=== PATIENT | male | born 1960 | race Caucasian/White ===

== ENCOUNTER 2022-04-24 14:00 | Emergency (ER) | payer OTHER ==
[2022-04-24] MEDS ORDERED: SODIUM CHLORIDE 0.9% 1,000 ML IV ONE (14:03)
[2022-04-24] MEDS ORDERED: methylPREDNISolone SOD SUCCI 125 MG/2 ML VIAL IV STA (14:03)
[2022-04-24] MEDS ORDERED: IPRATROPIUM-ALBUTEROL 3 ML NEB INHALATION STA (14:04)
[2022-04-24 14:09] VITALS: TEMP 97.9
--- NOTE | 2022-04-24 14:10 | ED ---
General Adult HPI - General Stated complaint: bee sting, allergic reaction Time Seen by Provider: 04/24/22 14:00 Source: patient, RN notes reviewed, old records reviewed - History of Present Illness Initial comments: This is a 61-year-old male who presents emergency department after having been bitten on the right side of his posterior neck by some sort of insect. Patient states about 20 minutes after that he became nauseous and vomited had an episode of diarrhea and became a little lightheaded. Patient denies any chest pain palpitations difficulty breathing or shortness of breath. Patient states prior to this episode he felt fine. Patient denies ever having a reaction to be like this. Patient states he was stung about a month ago and his arm swelled up but he had no other systemic problems. Patient denies headache patient denies any numbness or weakness. Patient currently is complaining of just feeling cold. Patient states his does have COVID. - Related Data Previous Rx's Medication Instructions Recorded EPINEPHrine (Auto Inject) [Epipen] 0.3 mg IM ONCE PRN #2 each 04/24/22 predniSONE [Deltasone] 40 mg PO DAILY #8 tab 04/24/22 Allergies Allergy/AdvReac Type Severity Reaction Status Date / Time No Known Allergies Allergy Verified 04/24/22 14:09 Review of Systems ROS Statement: Those systems with pertinent positive or pertinent negative responses have been documented in the HPI. ROS Other: All systems not noted in ROS Statement are negative. General Exam - General Exam Comments Initial Comments: GENERAL: Patient is well-developed and well-nourished. Patient is nontoxic and well- hydrated and is in mild distress. ENT: Neck is soft and supple. No significant lymphadenopathy is noted. Oropharynx is clear. Moist mucous membranes. Neck has full range of motion without eliciting any pain. EYES: The sclera were anicteric and conjunctiva were pink and moist. Extraocular movements were intact and pupils were equal round and reactive to light. Eyelids were unremarkable. PULMONARY: Unlabored respirations. Good breath sounds bilaterally. No audible rales rhonchi or wheezing was noted. CARDIOVASCULAR: There is a regular rate and rhythm without any murmurs gallops or rubs. ABDOMEN: Soft and nontender with normal bowel sounds. SKIN: Skin is clear with no lesions or rashes and otherwise unremarkable. NEUROLOGIC: Patient is alert and oriented x3. Cranial nerves II through XII are grossly intact. Motor and sensory are also intact. Normal speech, volume and content. Symmetrical smile. MUSCULOSKELETAL: Normal extremities with adequate strength and full range of motion. LYMPHATICS: No significant lymphadenopathy is noted PSYCHIATRIC: Normal psychiatric evaluation. Course Vital Signs 04/24/22 04/24/22 04/24/22 14:02 14:30 14:42 Temperature 97.9 F Pulse Rate 67 71 Respiratory 18 18 16 Rate Blood Pressure 88/53 102/60 O2 Sat by Pulse 90 L 98 Oximetry 04/24/22 04/24/22 04/24/22 14:49 15:08 15:54 Temperature Pulse Rate 71 Respiratory 16 Rate Blood Pressure 99/52 112/66 O2 Sat by Pulse Oximetry Medical Decision Making - Medical Decision Making Chest x-ray shows no acute abnormality. I will back and reevaluated the patient multiple times and he was feeling better and back to his baseline prior to discharge. Patient's vitals were stable the patient will be sent home with prednisone and an EpiPen. - Lab Data Lab Results 04/24/22 Range/Units 14:14 Coronavirus (PCR) Not Detected (Not Detectd) Disposition Clinical Impression: Anaphylaxis Disposition: HOME SELF-CARE Condition: Good Additional Instructions: Patient is to take Benadryl when necessary. Prescriptions: predniSONE [Deltasone] 40 mg PO DAILY #8 tab EPINEPHrine (Auto Inject) [Epipen] 0.3 mg IM ONCE PRN #2 each PRN Reason: Difficulty breathing Is patient prescribed a controlled substance at d/c from ED?: No Referrals: Jesse Bergeron Jr, DO [Primary Care Provider] - 1-2 days Time of Disposition: 15:58
--- NOTE | 2022-04-24 14:46 | XR ---
EXAMINATION TYPE: XR chest 2V DATE OF EXAM: 04/24/2022 COMPARISON: NONE TECHNIQUE: PA and lateral views submitted. HISTORY: Shortness of breath FINDINGS: The lungs are clear and there is no pneumothorax, pleural effusion, or focal pneumonia. Hypertrophi c arthropathy of the AC joint. No overt failure. Heart size normal. Hyperinflation seen. Atrophic and degenerative change of the spine. IMPRESSION: 1. Correlate for COPD..
[2022-04-24 15:54] VITALS: BP 112/66
[2022-04-24 16:20] VITALS: PULSE 72; RESP 18
== END 2022-04-24 16:20 | disposition home or self-care (01) ==
LOC: EC 14:00 → SUPCPDRO 14:00 → EC 16:20
DX: T78.2XXA Anaphylactic shock, unspecified, initial encounter (principal); Z20.822 Contact with and (suspected) exposure to COVID-19
CPT/HCPCS: 96361 ×2; 99284 ×2; 96374 ×2; 96375; 94640; 87635; 71046; J2930; 96360

== ENCOUNTER → 2023-05-07 | Outpatient (CLI) | payer BC, OTHER ==
--- NOTE | 2023-05-07 12:53 | XR ---
EXAMINATION TYPE: XR chest 2V DATE OF EXAM: 05/07/2023 COMPARISON: 04/24/2022 TECHNIQUE: PA and lateral views submitted. HISTORY: Cough FINDINGS: The lungs are clear and there is no pneumothorax, pleural effusion, or focal pneumonia. Heart size normal and no overt failure. Osseous structures demonstrate hypertrophic and degenerative changes of the spine. Hyperinflation suggests COPD. IMPRESSION: 1. No acute process.
== END | disposition home or self-care (01) ==
LOC: RADXRMAIN 12:26
PROVIDERS: ATTEND Internal Medicine
DX: R05.9 Cough, unspecified (principal)
CPT/HCPCS: 71046

== ENCOUNTER 2024-01-30 17:56 | Emergency (ER) | payer MEDICARE, OTHER ==
[2024-01-30] MEDS: FAMOTIDINE 20 MG/2 ML VIAL IV STA (18:16)
[2024-01-30] MEDS: diphenhydrAMINE 50 MG/ML 1 ML VIAL IVP STA (18:17)
[2024-01-30] MEDS: methylPREDNISolone SOD SUCCI 125 MG/2 ML VIAL IV STA (18:17)
[2024-01-30] MEDS: SODIUM CHLORIDE 0.9% 1,000 ML IV ONE (18:18)
--- NOTE | 2024-01-30 18:23 | ED ---
General Adult HPI - General Chief complaint: Allergic Reaction Stated complaint: Allergic reaction Time Seen by Provider: 01/30/24 17:59 Source: patient, EMS, RN notes reviewed, old records reviewed Mode of arrival: EMS - History of Present Illness Initial comments: 63-year-old male presenting with suspected anaphylaxis, has history of anaphylaxis to bee stings. He was painting outside and was stung by bee in the left upper arm. Patient developed nausea vomiting and diarrhea he subsequently became diaphoretic and minimally responsive. His had administered oral Benadryl and subsequently administered to autoinjector epinephrine doses however these were both . Upon arrival paramedics found the patient minimally responsive diaphoretic. They did additional dose of intramuscular epinephrine as well as IV fluid and Zofran and transported the patient. He had significant improvement during transport and is awake and alert at the time of arrival. - Related Data Previous Rx's Medication Instructions Recorded EPINEPHrine (Auto Inject) [Epipen] 0.3 mg IM ONCE PRN #2 each 04/24/22 predniSONE [Deltasone] 40 mg PO DAILY #8 tab 04/24/22 EPINEPHrine (Auto Inject) [Epipen] 0.3 mg IM ONCE PRN #2 each 01/30/24 Famotidine [Pepcid] 20 mg PO DAILY #7 tablet 01/30/24 diphenhydrAMINE [Benadryl] 25 mg PO TID PRN #21 capsule 01/30/24 predniSONE 50 mg PO DAILY #5 tab 01/30/24 Allergies Allergy/AdvReac Type Severity Reaction Status Date / Time venom-honey bee Allergy Anaphylaxis Verified 01/30/24 18:04 Review of Systems ROS Statement: Those systems with pertinent positive or pertinent negative responses have been documented in the HPI. ROS Other: All systems not noted in ROS Statement are negative. Past Medical History Past Medical History: No Reported History History of Any Multi-Drug Resistant Organisms: None Reported Smoking Status: Current every day smoker Past Alcohol Use History: Occasional Past Drug Use History: None Reported General Exam General appearance: alert, in distress Head exam: Present: atraumatic, normocephalic Eye exam: Present: normal appearance, PERRL ENT exam: Present: mucous membranes dry Neck exam: Present: normal inspection. Absent: tenderness Respiratory exam: Absent: respiratory distress, wheezes Cardiovascular Exam: Present: regular rate, normal rhythm GI/Abdominal exam: Present: soft. Absent: distended, tenderness, guarding Extremities exam: Present: normal inspection, normal capillary refill Neurological exam: Present: alert, oriented X3, CN II-XII intact. Absent: motor sensory deficit Psychiatric exam: Present: anxious Skin exam: Present: warm, dry Course Vital Signs 01/30/24 01/30/24 01/30/24 17:59 18:03 18:07 Temperature 97.1 F L Pulse Rate 77 78 Respiratory 18 18 18 Rate Blood Pressure 119/52 110/52 O2 Sat by Pulse 94 L 97 Oximetry 01/30/24 01/30/24 19:01 19:24 Temperature Pulse Rate 85 81 Respiratory 16 16 Rate Blood Pressure 119/52 108/81 O2 Sat by Pulse 97 97 Oximetry Medical Decision Making - Medical Decision Making Was pt. sent in by a medical professional or institution (TONY Sorenson, MEDIA MARKETING SPECIALIST, urgent care, hospital, or usp...) When possible be specific @ -No Did you speak to anyone other than the patient for history (EMS, parent, family, police, friend...)? What history was obtained from this source @ -No Did you review nursing and triage notes (agree or disagree)? Why? @ -I reviewed and agree with nursing and triage notes Were old charts reviewed (outside hosp., previous admission, EMS record, old EKG, old radiological studies, urgent care reports/EKG's, usp records)? Report findings @ -No old charts were reviewed Differential Diagnosis: Anaphylaxis secondary to bee sting EKG interpreted by me (3pts min.). @Sinus rhythm rate of 75, MN interval 212, QRS duration 113, QTc [address] segment elevation. X-rays interpreted by me (1pt min.). @ -None done CT interpreted by me (1pt min.). @ -None done U/S interpreted by me (1pt. min.). @ -None done What testing was considered but not performed or refused? (CT, X-rays, U/S, labs)? Why? @ -None What meds were considered but not given or refused? Why? @ -None Did you discuss the management of the patient with other professionals (sydni dhillon i.e. TONY Sorenson, MEDIA MARKETING SPECIALIST, lab, RT, psych nurse, social insurance adviser, executive relations specialist, teacher, patient safety officer, correctional case manager)? Give summary @ -No Was smoking cessation discussed for >3mins.? @ -No Was critical care preformed (if so, how long)? @ -[Yes, 35 minutes Were there social determinants of health that impacted care today? How? (Homelessness, low income, unemployed, alcoholism, drug addiction, transportati on, low edu. Level, literacy, decrease access to med. care, penitentiary, rehab)? @ -No Was there de-escalation of care discussed even if they declined (Discuss DNR or withdrawal of care, Hospice)? DNR status @ -No What co-morbidities impacted this encounter? (DM, HTN, Smoking, COPD, CAD, Cancer, CVA, ARF, Chemo, Hep., AIDS, mental health diagnosis, sleep apnea, morbid obesity)? @Anaphylaxis to bee sting Was patient admitted / discharged? Hospital course, mention meds given and route, prescriptions, significant lab abnormalities, going to OR and other pertinent info. @63-year-old male with anaphylactic reaction to bee sting. Patient had been medically treated by paramedics with epinephrine. He was given Benadryl, Solu- Medrol, Pepcid and IV fluids emergency department. He was monitored for 3 total hours post epinephrine injection without rebound. Patient's EpiPen was refilled and prescribed steroids, Pepcid and Benadryl. Strict return parameters are discussed. Patient will attempt to avoid activities that could result in being stung by bee. Undiagnosed new problem with uncertain prognosis? @ -No Drug Therapy requiring intensive monitoring for toxicity (Heparin, Nitro, Insulin, Cardizem)? @ -No Were any procedures done? @ -No Diagnosis/symptom? @ -Anaphylaxis to be stated Acute, or Chronic, or Acute on Chronic? @ -Acute Uncomplicated (without systemic symptoms) or Complicated (systemic symptoms)? @ -Default Side effects of treatment? @ -No Exacerbation, Progression, or Severe Exacerbation? @ -No Poses a threat to life or bodily function? How? (Chest pain, [place], [place], pneumonia, PE, COPD, DKA, ARF, appy, cholecystitis, CVA, Diverticulitis, Homicidal, Suicidal, threat to staff... and all critical care pts) @ -Yes cardiovascular collapse - Lab Data Result diagrams: 01/30/24 18:21 01/30/24 18:21 Lab Results 01/30/24 01/30/24 Range/Units 18:21 18:21 WBC 13.8 H (3.8-10.6) k/uL RBC 4.36 (4.30-5.90) m/uL Hgb 13.5 (13.0-17.5) gm/dL Hct 42.0 (39.0-53.0) % MCV 96.1 (80.0-100.0) fL MCH 31.0 (25.0-35.0) pg MCHC 32.3 (31.0-37.0) g/dL RDW 13.2 (11.5-15.5) % Plt Count 216 (150-450) k/uL MPV 9.8 Neutrophils % (Manual) 50 % Lymphocytes % (Manual) 44 % Monocytes % (Manual) 2 % Eosinophils % (Manual) 4 % Neutrophils # (Manual) 6.90 (1.3-7.7) k/uL Lymphocytes # (Manual) 6.07 H (1.0-4.8) k/uL Monocytes # (Manual) 0.28 (0-1.0) k/uL Eosinophils # (Manual) 0.55 (0-0.7) k/uL Nucleated RBCs 0 (0-0) /100 WBC Manual Slide Review Performed Sodium 139 (137-145) mmol/L Potassium 4.1 (3.5-5.1) mmol/L Chloride 109 H (98-107) mmol/L Carbon Dioxide 19 L (22-30) mmol/L Anion Gap 11 mmol/L BUN 18 (9-20) mg/dL Creatinine 0.90 (0.66-1.25) mg/dL Est GFR (CKD-EPI)AfAm >90 (>60 ml/min/1.73 sqM) Est GFR (CKD-EPI)NonAf 89 (>60 ml/min/1.73 sqM) Glucose 108 H (74-99) mg/dL Calcium 8.6 (8.4-10.2) mg/dL Total Bilirubin 1.2 (0.2-1.3) mg/dL AST 35 (17-59) U/L ALT 19 (4-49) U/L Alkaline Phosphatase 34 L (38-126) U/L Total Protein 6.5 (6.3-8.2) g/dL Albumin 4.0 (3.5-5.0) g/dL Disposition Clinical Impression: Anaphylaxis, Allergic reaction to insect sting Disposition: HOME SELF-CARE Condition: Fair Instructions (If sedation given, give patient instructions): Anaphylaxis (ED) Prescriptions: diphenhydrAMINE [Benadryl] 25 mg PO TID PRN #21 capsule PRN Reason: Allergic Reaction EPINEPHrine (Auto Inject) [Epipen] 0.3 mg IM ONCE PRN #2 each PRN Reason: Anaphylaxis Famotidine [Pepcid] 20 mg PO DAILY #7 tablet predniSONE 50 mg PO DAILY #5 tab Is patient prescribed a controlled substance at d/c from ED?: No Referrals: Manohar Pompa MD [Primary Care Provider] - 1-2 days Time of Disposition: 21:00
[2024-01-30 18:37] LABS: HGB 13.5 gm/dL (13.0-17.5); MCHC 32.3 g/dL (31.0-37.0); MCV 96.1 fL (80.0-100.0); Mean Platelet Volume 9.8; RBC 4.36 m/uL (4.30-5.90); RDW 13.2 % (11.5-15.5); WBC 13.8 k/uL (3.8-10.6)
[2024-01-30 18:54] LABS: African American GFR (CKD) >90 (>60 ml/min/1.73 sqM); Anion Gap 11 mmol/L; Blood Urea Nitrogen 18 mg/dL (9-20); Calcium 8.6 mg/dL (8.4-10.2); Carbon Dioxide 19 mmol/L (22-30); Chloride 109 mmol/L (98-107); Glucose 108 mg/dL (74-99); Non-African American GFR(CKD) 89 (>60 ml/min/1.73 sqM); Sodium 139 mmol/L (137-145)
[2024-01-30 19:00] LABS: ALT 19 U/L (4-49); AST 35 U/L (17-59); Potassium 4.1 mmol/L (3.5-5.1); Total Bilirubin 1.2 mg/dL (0.2-1.3); Total Protein 6.5 g/dL (6.3-8.2)
[2024-01-30 19:01] LABS: Alkaline Phosphatase 34 U/L (38-126)
[2024-01-30 19:03] LABS: Eosinophils # (M) 0.55 k/uL (0-0.7); Lymphocytes # (M) 6.07 k/uL (1.0-4.8); Monocytes # (M) 0.28 k/uL (0-1.0); Neutrophils % (M) 50 %; Nucleated Red Blood Cells 0 /100 WBC (0-0); Total Cells Counted 100
[2024-01-30 19:05] LABS: Platelet Count 216 k/uL (150-450)
[2024-01-30 20:42] VITALS: RESP 18
[2024-01-30 21:14] VITALS: BP 139/95; PULSE 80; TEMP 98.7
== END 2024-01-30 21:14 | disposition home or self-care (01) ==
LOC: EC 17:56
DX: T63.441A Toxic effect of venom of bees, accidental (unintentional), initial encounter (principal); F17.200 Nicotine dependence, unspecified, uncomplicated; Z91.030 Bee allergy status
CPT/HCPCS: 36415; 93005; 80053; 85025; 99284; 96374; 96375 ×2; 96361; J1200; J3490; J2919

== ENCOUNTER → 2024-05-21 | Outpatient (CLI) | payer MEDICARE, OTHER ==
--- NOTE | 2024-05-21 13:57 | MR ---
EXAMINATION TYPE: MR lumbar spine wo con DATE OF EXAM: 05/21/2024 10:40 AM COMPARISON: None. CLINICAL INDICATION: Male, 63 years old with history of M54.51 LOW BACK PAIN; PHH, Low back pain into rt lower extremity TECHNIQUE: Multi planar, multi sequence imaging was performed utilizing: T1-weighted, T2-weighted, a nd turbo inversion recovery imaging of the lumbar spine. IV Contrast: cc . (None if empty) FINDINGS: Alignment: The lumbar vertebral bodies have preserved heights and alignment. Cord: The conus medullaris and the distal spinal cord appear unremarkable with regards to their signa l intensity and morphology. Bones/Discs: Mild degeneration changes throughout the spine with osteophyte formation and facet joint arthropathy. Intervertebral disc signal is maintained. No abnormal inversion recovery signal to sugg est bony edema. T12-L1: No evidence of significant spinal canal stenosis or neural foraminal stenosis. L1-L2: No evidence of significant spinal canal stenosis. Facet joint arthropathy mild bilateral neura l foraminal stenosis. L2-L3: No evidence of significant spinal canal stenosis. Facet joint arthropathy mild bilateral neura l foraminal stenosis. L3-L4: No evidence of significant spinal canal stenosis. Facet joint arthropathy mild bilateral neura l foraminal stenosis. L4-L5: Right foraminal disc disc extrusion with 7 mm superior migration series 301 image 12. Which ef faces the exiting right nerve. No significant spinal canal stenosis. Mild to moderate left neural for aminal stenosis. L5-S1: The disc has a rounded posterior morphology without significant spinal canal stenosis. Facet j oint arthropathy with mild bilateral neural foraminal stenosis. No significant spinal canal or neural foraminal stenosis in the remainder of the visualized levels. Other findings: None. IMPRESSION: 1. L4-L5 right foraminal disc herniation which effaces the exiting right nerve 2. No definitive evidence of significant spinal canal stenosis. 3. Multilevel disc degeneration with associated osteoarthritic changes. [facility], , 05/21/2024 1:54 PM
== END | disposition home or self-care (01) ==
LOC: RADMRIMAIN 09:44
PROVIDERS: ATTEND Physical Medicine & Rehabilitation
DX: M48.062 Spinal stenosis, lumbar region with neurogenic claudication (principal); M51.17 Intervertebral disc disorders with radiculopathy, lumbosacral region; M47.26 Other spondylosis with radiculopathy, lumbar region; M43.17 Spondylolisthesis, lumbosacral region
CPT/HCPCS: 72148

== ENCOUNTER 2025-02-05 13:41 | Emergency (ER) | payer MEDICARE ==
--- NOTE | 2025-02-05 13:48 | ED ---
General Adult HPI - General Stated complaint: Anaphylaxis Time Seen by Provider: 02/05/25 13:46 - History of Present Illness Initial comments: Dictation was produced using [employer] dictation software. please excuse any grammatical, word or spelling errors. Chief Complaint: 64-year-old male presents with anaphylaxis History of Present Illness: Patient 64-year-old male with anaphylaxis secondary to bee stings. Is cutting his grass approximately 3040 minutes ago when he got stung multiple times by bees to his head and his arm. Patient was able to make it back to the house and he administered himself to epi autoinjectors to his right thigh. EMS was called EMS states that initially his condition was worrisome however after couple more minutes his breathing and symptomatology improved. EMS provided patient with Benadryl. Patient states he feels much better at the bedside. Time of autoinjector epi administration was 26 minutes prior to arrival. The ROS documented in this emergency department record has been reviewed and confirmed by me. Those systems with pertinent positive or negative responses have been documented in the HPI. All other systems are other negative and/or noncontributory. - Related Data Home Medications Medication Instructions Recorded Confirmed EPINEPHrine (Auto Inject) [Epipen] 0.3 mg IM ONCE PRN 01/30/24 01/30/24 Previous Rx's Medication Instructions Recorded EPINEPHrine (Auto Inject) [Epipen] 0.3 mg IM ONCE PRN #2 each 01/30/24 Famotidine [Pepcid] 20 mg PO DAILY #7 tablet 01/30/24 diphenhydrAMINE [Benadryl] 25 mg PO TID PRN #21 capsule 01/30/24 predniSONE 50 mg PO DAILY #5 tab 01/30/24 EPINEPHrine (Auto Inject) [Epipen] 0.3 mg IM ONCE PRN #2 each 02/05/25 Allergies Allergy/AdvReac Type Severity Reaction Status Date / Time venom-honey bee Allergy Anaphylaxis Verified 01/30/24 19:41 Review of Systems ROS Statement: Those systems with pertinent positive or pertinent negative responses have been documented in the HPI. ROS Other: All systems not noted in ROS Statement are negative. Past Medical History Past Medical History: No Reported History History of Any Multi-Drug Resistant Organisms: None Reported Smoking Status: Current every day smoker Past Alcohol Use History: Occasional Past Drug Use History: None Reported General Exam - General Exam Comments Initial Comments: PHYSICAL EXAM: General Impression: Alert and oriented x3, not in acute distress HEENT: Normocephalic atraumatic, extra-ocular movements intact, pupils equal and reactive to light bilaterally, mucous membranes moist. Cardiovascular: Heart regular rate and rhythm Chest: Able to complete full sentences, no retractions, no tachypnea Abdomen: abdomen soft, non-tender, non-distended, no organomegaly Musculoskeletal: Pulses present and equal in all extremities, no peripheral edema Motor: no focal deficits noted Neurological: CN II-XII grossly intact, no focal motor or sensory deficits noted Skin: Intact with no visualized rashes Psych: Normal affect and mood Course Vital Signs 02/05/25 02/05/25 02/05/25 13:46 14:48 15:30 Pulse Rate 91 82 90 Respiratory 20 18 17 Rate Blood Pressure 131/72 120/87 123/69 O2 Sat by Pulse 93 L 94 L 95 Oximetry EKG Findings - EKG Comments: EKG Findings:: My EKG interpretation: Ventricular rate 90, sinus rhythm, NM normal 176, QRS 106, QTc 433. No NM prolongation, no QTC prolongation, no ST or T-wave changes noted. Overall, this EKG is unremarkable Medical Decision Making - Medical Decision Making Was pt. sent in by a medical professional or institution (, PA, DISTRICT MANAGER IN TRAINING, urgent care, hospital, or usp...) When possible be specific @ -No Did you speak to anyone other than the patient for history (EMS, parent, family, police, friend...)? What history was obtained from this source @ -No Did you review nursing and triage notes (agree or disagree)? Why? @ -I reviewed and agree with nursing and triage notes Were old charts reviewed (outside hosp., previous admission, EMS record, old EKG, old radiological studies, urgent care reports/EKG's, usp records)? Report findings @ -No old charts were reviewed Differential Diagnosis (chest pain, altered mental status, abdominal pain women, abdominal pain men, vaginal bleeding, musculoskeletal, weakness, fever, dyspnea , syncope, headache, dizziness, GI bleed, back pain, seizure, CVA, palpatations, mental health)? @ -Anaphylaxis, allergic reaction, bug bite EKG interpreted by me (3pts min.). @ -None done X-rays interpreted by me (1pt min.). @ -None done CT interpreted by me (1pt min.). @ -None done U/S interpreted by me (1pt. min.). @ -None done What testing was considered but not performed or refused? (CT, X-rays, U/S, labs)? Why? @ -None What meds were considered but not given or refused? Why? @ -None Was smoking cessation discussed for >3mins.? @ -No Were there social determinants of health that impacted care today? How? (Homelessness, low income, unemployed, alcoholism, drug addiction, transportation, low edu. Level, literacy, decrease access to med. care, alf, rehab)? @ -No Was there de-escalation of care discussed even if they declined (Discuss DNR or withdrawal of care, Hospice)? DNR status @ -No What co-morbidities impacted this encounter? (DM, HTN, Smoking, COPD, CAD, Cancer, CVA, ARF, Chemo, Hep., AIDS, mental health diagnosis, sleep apnea, morbid obesity)? @ -None Was patient admitted / discharged? Hospital course, mention meds given and route, prescriptions, significant lab abnormalities, going to OR and other pertinent info. @ -64-year-old male presents after bee sting. Patient has history of anaphylaxis secondary to bee stings. He was given IM epi at home along with antihistamines. Patient stable at the bedside observe the emergency department approximately 2 hours and 40 minutes will be discharged. Patient stable to condition given refills for epi autoinjectors Did you discuss the management of the patient with other professionals (professionals i.e. , PA, DISTRICT MANAGER IN TRAINING, lab, RT, psych nurse, social media marketer, supply chain consultant, teacher, general service officer, rn field case manager)? Give summary @ -No Was critical care preformed (if so, how long)? @ -No Undiagnosed new problem with uncertain prognosis? @ -No Drug Therapy requiring intensive monitoring for toxicity (Heparin, Nitro, Insulin, Cardizem)? @ -No Were any procedures done? @ -No Diagnosis/symptom? Acute, or Chronic, or Acute on Chronic? Uncomplicated (without systemic symptoms) or Complicated (systemic symptoms)? @ -Bee sting complicated by anaphylaxis Side effects of treatment? @ -No Exacerbation, Progression, or Severe Exacerbation? @ -No Poses a threat to life or bodily function? How? (Chest pain, [place], [place], pneumonia, PE, COPD, DKA, ARF, appy, cholecystitis, CVA, Diverticulitis, Homicidal, Suicidal, threat to staff... and all critical care pts) @ -yes Disposition Clinical Impression: Anaphylaxis Disposition: HOME SELF-CARE Condition: Good Instructions (If sedation given, give patient instructions): Anaphylaxis (ED) Prescriptions: EPINEPHrine (Auto Inject) [Epipen] 0.3 mg IM ONCE PRN #2 each PRN Reason: Anaphylaxis Is patient prescribed a controlled substance at d/c from ED?: No Referrals: Manohar Pompa MD [Primary Care Provider] - 1-2 days Time of Disposition: 16:24
[2025-02-05] MEDS: SODIUM CHLORIDE 0.9% 1,000 ML IV STA (13:56)
[2025-02-05] MEDS: LIDOCAINE VISCOUS 2% 15 ML CUP PO ONE (15:02)
[2025-02-05] MEDS: FAMOTIDINE 20 MG/2 ML VIAL IV STA (15:10)
[2025-02-05 15:33] VITALS: BP 123/69; PULSE 90; RESP 17
== END 2025-02-05 17:45 | disposition home or self-care (01) ==
LOC: EC 13:41
DX: T63.441A Toxic effect of venom of bees, accidental (unintentional), initial encounter (principal); T78.2XXA Anaphylactic shock, unspecified, initial encounter; F17.200 Nicotine dependence, unspecified, uncomplicated; Z91.030 Bee allergy status
CPT/HCPCS: 93005; 99285; 96374; J1308

== ENCOUNTER 2025-02-07 03:48 | Emergency (ER) | payer MEDICARE ==
[2025-02-07 04:05] VITALS: BP 131/81; PULSE 66; RESP 16; TEMP 97.6
--- NOTE | 2025-02-07 04:22 | ED ---
Allergic Reaction HPI - General Chief complaint: Allergic Reaction Stated complaint: Insect Sting Time Seen by Provider: 02/07/25 04:13 Source: patient Mode of arrival: ambulatory Limitations: no limitations - History of Present Illness Initial Comments: This patient is a 64-year-old man who arrives to have evaluation for reaction to bee stings. Patient states that he had been stung over 24 hours ago. He initially had improvement in symptoms but now states symptoms are recurring. He is having itching and hives to the bilateral arms and chest. The patient denies any cough, shortness of breath, wheezing. No trouble with swallowing or any oral swelling. No vomiting or diarrhea. Patient states that his last tetanus shot was less than 10 years ago. MD Complaint: allergic reaction, hives -: hour(s) Exposure: insect bite Symptoms: rash, itching Severity: moderate Treatment Prior to Arrival: none - Related Data Home Medications Medication Instructions Recorded Confirmed EPINEPHrine (Auto Inject) [Epipen] 0.3 mg IM ONCE PRN 01/30/24 01/30/24 Previous Rx's Medication Instructions Recorded EPINEPHrine (Auto Inject) [Epipen] 0.3 mg IM ONCE PRN #2 each 01/30/24 Famotidine [Pepcid] 20 mg PO DAILY #7 tablet 01/30/24 diphenhydrAMINE [Benadryl] 25 mg PO TID PRN #21 capsule 01/30/24 predniSONE 50 mg PO DAILY #5 tab 01/30/24 EPINEPHrine (Auto Inject) [Epipen] 0.3 mg IM ONCE PRN #2 each 02/05/25 Famotidine [Pepcid] 20 mg PO BID #14 tablet 02/07/25 diphenhydrAMINE [Benadryl] 50 mg PO QID PRN #24 capsule 02/07/25 predniSONE 60 mg PO DAILY #30 tab 02/07/25 Allergies Allergy/AdvReac Type Severity Reaction Status Date / Time venom-honey bee Allergy Anaphylaxis Verified 02/07/25 04:01 Review of Systems ROS Statement: Those systems with pertinent positive or pertinent negative responses have been documented in the HPI. ROS Other: All systems not noted in ROS Statement are negative. 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 Absent: respiratory distress, wheezes, rales, rhonchi, stridor, accessory muscle use Cardiovascular Exam: Present: regular rate, normal rhythm, normal heart sounds. Absent: systolic murmur, diastolic murmur, rubs, gallop GI/Abdominal exam: Present: soft. Absent: tenderness Neurological exam: Present: alert Skin exam: Present: warm, dry, intact, urticaria Course Vital Signs 02/07/25 04:01 Temperature 97.6 F Pulse Rate 66 Respiratory 16 Rate Blood Pressure 131/81 O2 Sat by Pulse 96 Oximetry Medical Decision Making - Medical Decision Making Was pt. sent in by a medical professional or institution (, PA, TRIM INSTALLER, urgent care, hospital, or half-way...) When possible be specific @ -[No] Did you speak to anyone other than the patient for history (EMS, parent, family, police, friend...)? What history was obtained from this source @ -[No] Did you review nursing and triage notes (agree or disagree)? Why? @ -[I reviewed and agree with nursing and triage notes] Were old charts reviewed (outside hosp., previous admission, EMS record, old EKG, old radiological studies, urgent care reports/EKG's, half-way records)? Report findings @ -[No old charts were reviewed] Differential Diagnosis (chest pain, altered mental status, abdominal pain women, abdominal pain men, vaginal bleeding, weakness, fever, dyspnea, syncope, headache, dizziness, GI bleed, back pain, seizure, CVA, palpatations, mental health, musculoskeletal)? @ -The differential diagnosis includes allergic reaction, urticaria, cellulitis, infected insect bite, foreign body to the skin. EKG interpreted by me (3pts min.). @ -[As above] X-rays interpreted by me (1pt min.). @ -[None done] CT interpreted by me (1pt min.). @ -[None done] U/S interpreted by me (1pt. min.). @ -[None done] What testing was considered but not performed or refused? (CT, X-rays, U/S, labs)? Why? @ -[None] What meds were considered but not given or refused? Why? @ -[None] Did you discuss the management of the patient with other professionals (professionals i.e. , PA, TRIM INSTALLER, lab, RT, psych nurse, social security benefits interviewer, books salesperson, teacher, tactical debriefer officer, case advocate)? Give summary @ -[No] Was smoking cessation discussed for >3mins.? @ -[No] Was critical care preformed (if so, how long)? @ -[No] Were there social determinants of health that impacted care today? How? (Homelessness, low income, unemployed, alcoholism, drug addiction, transportation, low edu. Level, literacy, decrease access to med. care, longterm, rehab)? @ -[No] Was there de-escalation of care discussed even if they declined (Discuss DNR or withdrawal of care, Hospice)? DNR status @ -[No] What co-morbidities impacted this encounter? (DM, HTN, Smoking, COPD, CAD, Cancer, CVA, ARF, Chemo, Hep., AIDS, mental health diagnosis, sleep apnea, m orbid obesity)? @ -[None] Was patient admitted / discharged? Hospital course, mention meds given and route, prescriptions, significant lab abnormalities, going to OR and other pertinent info. @ -[Patient is 64-year-old man with reaction to insect sting. No anaphylaxis or systemic symptoms. He is having urticaria. Patient started on medications here, discussed appropriate further care and follow-up as well as return parameters Undiagnosed new problem with uncertain prognosis? @ -[No] Drug Therapy requiring intensive monitoring for toxicity (Heparin, Nitro, Insulin, Cardizem)? @ -[No] Were any procedures done? @ -[No] Diagnosis/symptom? @ -[default] Acute, or Chronic, or Acute on Chronic? @ -[Allergic reaction to insect sting Urticaria Uncomplicated (without systemic symptoms) or Complicated (systemic symptoms)? @ -[Uncomplicated Side effects of treatment? @ -[No] Exacerbation, Progression, or Severe Exacerbation? @ -[No] Poses a threat to life or bodily function? How? (Chest pain, [place], PA, pneumonia, PE, COPD, DKA, ARF, appy, cholecystitis, CVA, Diverticulitis, Homicidal, Suicidal, threat to staff... and all critical care pts) @ -[No] All treatments are based on ideal body weight as in ED triage Disposition Clinical Impression: Allergic reaction to insect sting Disposition: HOME SELF-CARE Condition: Good Instructions (If sedation given, give patient instructions): Urticaria (ED) Prescriptions: diphenhydrAMINE [Benadryl] 50 mg PO QID PRN #24 capsule PRN Reason: Allergic Reaction Famotidine [Pepcid] 20 mg PO BID #14 tablet predniSONE 60 mg PO DAILY #30 tab Is patient prescribed a controlled substance at d/c from ED?: No Referrals: Manohar Pompa MD [Primary Care Provider] - 1-2 days
[2025-02-07] MEDS: FAMOTIDINE 20 MG TAB PO STA (04:26)
[2025-02-07] MEDS: predniSONE 20 MG TAB PO STA (04:26)
== END 2025-02-07 04:30 | disposition home or self-care (01) ==
LOC: EC 03:48
DX: T63.441A Toxic effect of venom of bees, accidental (unintentional), initial encounter (principal); Z91.030 Bee allergy status; Z87.891 Personal history of nicotine dependence
CPT/HCPCS: 99283; J7512